=== PATIENT | male | born 1955 | race Caucasian/White ===

== ENCOUNTER → 2018-09-05 15:35 | Outpatient (CLI) | payer OTHER, SELFPAY ==
[2018-09-05 18:14] LABS: PSA,Total- Diagnostic 4.88 ng/mL (0.0-4.0)
[2018-09-08 09:50] LABS: PSA, Free 0.77 ng/mL; PSA, Free % 17.1 % (.); PSA, Total Ultrasensitive 4.5 ng/mL (0.0-4.0)
--- OUTSIDE RECORDS SUMMARY | 2018-10-18 14:20 | XMS RPT_ITS ---
:1955 Author Organization OH[facility] Care Team Providers Name Role Phone ANA M CID, DR. MICHAELA Diaz Attending Unavailable SANGITA YAÑEZ MD [facility] Unavailable Elias Humphreys Attending Unavailable Elias Humphreys Referring Unavailable Michaela [facility] Unavailable PROBLEMS PROBLEMS DATE TYPE CONDITION / ATTENDING STATUS SOURCE CODE 08/11/2018 Admitting Encounter for ANA M CID, Active [facility] Diagnosis screening for MICHAELA Jabier [facility] malignant Repository neoplasm of prostate / Z12.5(ICD-10) 08/11/2018 Admitting Encounter for ANA M CID DR. Active [facility] Diagnosis screening for MICHAELA Jabier [facility] diabetes Repository mellitus / Z13.1(ICD-10) 08/11/2018 Admitting Encounter for ANA M CID DR. Active [facility] Diagnosis screening for MICHAELA Jabier [facility] lipoid Repository disorders / Z13.220(ICD-10) PROCEDURES PROCEDURES No Procedure Records FoundRESULTS RESULTS PSA,TOTAL- DIAGNOSTIC Collected: 09/05/2018 Status: F Source: [place] 3:51 PM [facility] REPOSITORY TYPE CODE TESTS RESULT OUT OF REFERENCE UNITS RANGE LAB L501.9940 0.0-4.0 ng/mL PSA, High DIAGNOSTIC 4.88 Result Comment: This test was performed using the TPSA assay method for the [employer] chemistry system. Values obtained with different assay methods cannot be used interchangably. When changing PSA assays in the course of monitoring a patient, additional sequential testing should be carried out to confirm baseline values. Performed By: #### L501.9940 #### [place] [facility] [address] [place], [address] PSA TOTAL+%FREE Collected: 09/05/2018 Status: F Source: [place] 3:51 PM [facility] REPOSITORY TYPE CODE TESTS RESULT OUT OF RANGE REFERENCE UNITS LAB L3110.0700 0.0-4.0 ng/mL High PSA, 4.5 TOTAL Result Comment: Dick ECLIA methodology. According to the [place] [employer], Serum PSA should decrease and remain at undetectable levels after radical prostatectomy. The AUA defines biochemical recurrence as an initial PSA value 0.2 ng/mL or greater followed by a subsequent confirmatory PSA value 0.2 ng/mL or greater. Values obtained with different assay methods or kits cannot be used interchangeably. Results cannot be interpreted as absolute evidence of the presence or absence of malignant disease. LAB L3110.0800 N/A ng/mL Normal PSA, 0.77 FREE Result Comment: Dick ECLIA methodology. LAB L3110.0900 . % Normal PSA, FREE 17.1 % Result Comment: The table below lists the probability of prostate cancer for men with non-suspicious PEDRO LUIS results and total PSA between 4 and 10 ng/mL, by patient age (Lisa et al, ROSEMARY 1998, 279:1542). % Free PSA 50-64 yr 65-75 yr 0.00-10.00% 56% 55% 10.01-15.00% 24% 35% 15.01-20.00% 17% 23% 20.01-25.00% 10% 20% >25.00% 5% 9% Please note: Lisa et al did not make specific recommendations regarding the use of percent free PSA for any other population of men. Performed at: [facility] [id number] [employer]: Jamison Meehan PhD, Phone: [phone] Performed By: #### L3110.0500 #### [facility] (refer to report for specific site) refer to report for address and phone number CMP Collected: 08/11/2018 Status: F Source: [place] [facility] 9:22 AM [facility] REPOSITORY TYPE CODE TESTS RESULT OUT OF REFERENCE UNITS RANGE LAB GLU(LOINC) 80-115 mg/dL Low Glucose Level 78 LAB NA(LOINC) 136-145 mmol/L Sodium Level 144 LAB K(LOINC) 3.5-5.1 mmol/L Potassium Level 4.5 LAB CL(LOINC) 98-107 mmol/L Chloride 107 LAB CO2(LOINC) 23-31 mmol/L CO2 28 LAB EBAL(LOINC mEq/L ) Electrolyte Balance 9.0 LAB BUN(LOINC) 7-18 mg/dL BUN High 19 LAB CRE(LOINC) 0.70-1.30 mg/dL Creatinine Lvl (s) 0.98 LAB BC(LOINC) 7-27 ratio BUN/Creatinine 19 Ratio LAB CA(LOINC) 8.4-10.2 mg/dL Calcium Lvl 9.2 LAB PROT(LOINC 6.4-8.2 G/dL ) Total Protein 6.8 LAB ALB(LOINC) 3.4-4.8 G/dL Albumin Level 4.1 LAB GLB(LOINC) G/dL Globulin 2.7 LAB AG(LOINC) 1.1-2.5 ratio A/G Ratio 1.5 LAB BILT(LOINC 0.2-1.0 mg/dL ) Bili Total 0.5 LAB AP(LOINC) 40-135 U/L Alk Phos 77 LAB AST(LOINC) 10-40 U/L AST/SGOT 23 LAB ALT(LOINC) 10-35 U/L ALT/SGPT 26 Performed By: #### CMP, LIPID, GFR, PSA #### [address] [address] LIPID Collected: 08/11/2018 Status: F Source: [facility] 9:22 AM [facility] REPOSITORY TYPE CODE TESTS RESULT OUT OF REFERENCE UNITS RANGE LAB CHOL(LOINC 0-200 mg/dL ) Cholesterol 188 Result Comment: Cholesterol Reference Interval: Less than 200 Desirable 200-239 Borderline high risk 240 and above High risk LAB TRIG(LOINC) 0-150 mg/dL Triglycerides 53 Result Comment: Triglyceride Reference Interval: Less than 150 Normal 150-199 Borderline high risk 200-499 High risk 500 or higher Very high risk LAB HD(LOINC) 40-60 mg/dL HDL High Cholesterol 61 LAB LDL(LOINC) 0-130 mg/dL LDL Cholesterol 116 Performed By: #### CMP, LIPID, GFR, PSA #### [address] [address] .GFR Collected: 08/11/2018 Status: F Source: [facility] 9:22 AM [facility] REPOSITORY TYPE CODE TESTS RESULT OUT OF REFERENCE UNITS RANGE LAB GFRAA(LOINC ml/min/1.73 ) sqm GFR 93 [place] Result Comment: GFR Population mean for , Non- Americans Ages 20-29 = 116 mL/min/1.73 sq.m. Ages 30-39 = 107 mL/min/1.73 sq.m. Ages 40-49 = 99 mL/min/1.73 sq.m. Ages 50-59 = 93 mL/min/1.73 sq.m. Ages 60-69 = 85 mL/min/1.73 sq.m. Ages 70+ = 75 mL/min/1.73 sq.m. Chronic Kidney Disease: Less than 60 mL/min/1.73 square meters End Stage Renal Disease: Less than 15 mL/min/1.73 square meters LAB GFRNO(LOINC) ml/min/1.73sqm GFR Non- 77 Result Comment: GFR Population mean for , Non- Americans Ages 20-29 = 116 mL/min/1.73 sq.m. Ages 30-39 = 107 mL/min/1.73 sq.m. Ages 40-49 = 99 mL/min/1.73 sq.m. Ages 50-59 = 93 mL/min/1.73 sq.m. Ages 60-69 = 85 mL/min/1.73 sq.m. Ages 70+ = 75 mL/min/1.73 sq.m. Chronic Kidney Disease: Less than 60 mL/min/1.73 square meters End Stage Renal Disease: Less than 15 mL/min/1.73 square meters Performed By: #### CMP, LIPID, GFR, PSA #### [address] [address] PSA Collected: 08/11/2018 Status: F Source: [employer] 9:22 AM [facility] REPOSITORY TYPE CODE TESTS RESULT OUT OF REFERENCE UNITS RANGE LAB PSA(LOINC) 0.00-4.00 ng/mL High Prostate 6.10 Specific Antigen Performed By: #### CMP, LIPID, GFR, PSA #### [address] [address] ALLERGIES ALLERGIES No Allergies Records FoundENCCHRI[facility] ADMIT/DISCHARGE ACCOUNT NUMBER ADMITTING ENCOUNTER LOCATION SOURCE CLASS 09/05/2018 [id number] Ambulatory [place] [facility] ding:LAB Repository 08/11/2018/08/15/20 [id number] Ambulatory [address] ding:JUAN [facility] Repository PAYERS PAYERS ENCOUNTER GUARANTOR PAYER SUBSCRIBER SOURCE 09/05/2018 MARJORIE Virgen Primary MARJORIE Virgen [place] [id number] Insurance:MEDICAL JAQUETDOB: [facility] [id number]: Repository [id number]: [phone] [id number] [phone] () Date:[id number] [address] [place] [phone]: 09/05/2018 Secondary NOT GIVENUNK [place] Insurance:SELF PAY [facility] Number: Effective Repository Date:2018-09-05 08/11/2018 MARJORIE Virgen Primary MARJORIE Virgen [facility] JAQUETDOB: Insurance:MEDICAL JAQUETDOB: [facility] [id number] [address] [id number] [place] [address] Number: [address] [place] [address] [id number], [place] [address]Unw: ([phone]) Date:2018-08-11 [id number]: () [id number] [phone] Name:SEVERIANO CONWAY ()Tel: [phone], [place] [phone] () [phone]:
== END ==
PROVIDERS: Family Provider Family Medicine; PCP Family Medicine; Referring Provider Urology; Visit Provider Urology
DX: R97.20 Elevated prostate specific antigen [PSA] (principal)
CPT/HCPCS: 36415; 84153; 84154

== ENCOUNTER → 2019-01-26 07:13 | Outpatient (CLI) | payer OTHER, SELFPAY ==
[2019-01-26 08:04] LABS: PSA,Total- Diagnostic 4.02 ng/mL (0.0-4.0)
== END ==
PROVIDERS: Family Provider Family Medicine; PCP Family Medicine; Visit Provider Urology
DX: R97.20 Elevated prostate specific antigen [PSA] (principal)
CPT/HCPCS: 36415; 84153

== ENCOUNTER → 2019-07-24 06:03 | Outpatient (CLI) | payer OTHER, SELFPAY ==
[2019-07-24 07:36] LABS: PSA,Total- Diagnostic 3.53 ng/mL (0.0-4.0)
== END ==
LOC: LAB.FUTURE 06:05 → LAB 06:07
PROVIDERS: Family Provider Family Medicine; PCP Family Medicine; Visit Provider Nurse Practitioner Adult Health
DX: R97.20 Elevated prostate specific antigen [PSA] (principal)
CPT/HCPCS: 36415; 84153

== ENCOUNTER → 2020-06-29 07:20 | Outpatient (CLI) | payer OTHER, SELFPAY ==
[2020-06-29 08:49] LABS: PSA,Total- Diagnostic 3.52 ng/mL (0.0-4.0)
== END ==
PROVIDERS: PCP Family Medicine; Referring Provider Nurse Practitioner Adult Health; Visit Provider Nurse Practitioner Adult Health
DX: R97.20 Elevated prostate specific antigen [PSA] (principal)
CPT/HCPCS: 36415; 84153

== ENCOUNTER → 2021-07-04 13:17 | Outpatient (CLI) | payer MEDICARE, OTHER, SELFPAY ==
[2021-07-04 14:40] LABS: PSA,Total- Diagnostic 4.16 ng/mL (0.0-4.0)
== END ==
PROVIDERS: PCP Family Medicine; Visit Provider Nurse Practitioner Adult Health
DX: R97.20 Elevated prostate specific antigen [PSA] (principal)
CPT/HCPCS: 36415; 84153